=== PATIENT | female | born 1970 | race Caucasian/White ===

== ENCOUNTER → 2018-09-05 | Outpatient (CLI) | payer OTHER ==
[~2018-09-05] MED LIST: ACEBUTCAFT PO; AMOX500 PO; BUTASPCAF PO; Bactrim Ds Tab1 EACH PO; CEPH500 PO; CETI10 PO; CIPR500 PO; CLIN300 PO; CYCL10 PO; DIPH50 PO; DOXY100 PO; FLUT.05NI; HYDACE5 PO; HYDACE5325 PO; HYDR1TAB94 PO; IBUP600 PO; IBUP800 PO; LORA10ER PO; LORA1SY PO; LORPSEER12; Norco 5-325 Ta1 EACH PO; OLOP.1OPSO OU; PROM25 PO; Polytrim Eye Dr10 ML BOTHEYES; Prednisone20 MG PO; RXHYDACE PO; SULTRIDS PO; TRIA80TC TOP; Zofran Odt4 MG PO
== END | disposition home or self-care (01) ==
LOC: LAB 13:20 → LAB SHORT 13:20
DX: L03.90 Cellulitis, unspecified (principal)
CPT/HCPCS: 87070; 87077; 87147; 87186; 87205

== ENCOUNTER 2018-12-15 07:03 | Day surgery (SDC) | payer OTHER ==
[~2018-12-15] VITALS: Ht 160 cm; Wt 66.2 kg
[~2018-12-15 07:03] MED LIST changes: +ASCO500; +Loratadine10 MG; +Multiple Vitam1 EAC1
--- NOTE | 2018-12-15 07:56 | NUR ---
12/15/18 0756 Slava Eckert 1ST IV ATTEMPT IN RAC UNSUCESSFUL, [facility] 2ND IV ATTEMPT IN LFA SUCCESSFUL, [facility]
--- NOTE | 2018-12-15 10:46 | NUR ---
12/15/18 1046 Corinna La PT ALEJANDRA PO FLUIDS WELL AND WAS GIVEN A TABLET AND PEN TO WRITE INSTEAD OF SPEAKING. ENCOURAGED VOICE REST FOR 48 HRS AND PT STATED UNDERSTANDING. VSS AND STATED PAIN WAS 2/10 AND NO NAUSEA T/O RECOVERY. AMBU TO CAR W/SBA X1 ALEJANDRA WELL. COPIES OF ALL INSTRUCTIONS GIVEN AND PT HAS PAIN AND NAUSEA MEDS AT HOME
--- NOTE | 2018-12-15 10:52 | NUR ---
12/15/18 1052 Austen Lynch LATE ENTRY FOR 914 0.25MG EPI MIXED INTO 50ML INJECTIBLE NACL TO MAKE SOLUTION OF 1:200,000. 0.2ML OF SOLUTION INJECTED INTO OPSITE AT 914 BY GARFIELD.
== END 2018-12-15 10:35 | disposition home or self-care (01) ==
LOC: ORSCSDS 07:03
PROVIDERS: Otolaryngology
PROC: 0CBT8ZZ Excision of Right Vocal Cord, Via Natural or Artificial Opening Endoscopic (ICD-10-PCS; principal; 2018-12-15 08:15)
DX: J38.1 Polyp of vocal cord and larynx (principal); Z87.891 Personal history of nicotine dependence
CPT/HCPCS: J0330; J1100; J1885; J2250; J2405; J2704; J3010; J7120

== ENCOUNTER 2019-04-03 00:49 | Emergency (ER) | payer OTHER ==
[~2019-04-03] VITALS: Ht 157.5 cm; Wt 63.5 kg
[2019-04-03] MEDS ORDERED: ACYC200 PO (01:07)
[2019-04-03 01:48] LABS: Source, Urine Clean Catch
[2019-04-03 01:52] LABS: Bilirubin, Urine Neg (Neg); Blood, Urine Neg (Neg); Glucose Qualitative, Urine Neg (Neg); Ketones, Urine Neg (Neg); Leukocyte Esterase, Urine Neg (Neg); Nitrite, Urine Neg (Neg); Protein, Urine Neg (Neg); Specific Gravity, Urine 1.015 (1.003-1.022); Urobilinogen, Urine NORM (Normal)
[2019-04-03 01:58] LABS: Appearance, Urine Clear (Clear); Color, Urine Yellow (P-Yellow)
[2019-04-03 02:16] LABS: BASOPHILS ABSOLUTE AUTO 0.04 K/mm3 (0.00-0.23); BASOPHILS PERCENT AUTO 1 % (0-2); EOSINOPHILS PERCENT AUTO 5 % (0-6); Hematocrit 37.4 % (33.0-51.0); Hemoglobin 12.5 g/dL (11.5-16.0); IMMATURE GRAN ABSOLUTE AUTO 0.03 K/mm3 (0.00-0.10); IMMATURE GRAN PERCENT AUTO 1 % (0-1); LYMPHOCYTES ABSOLUTE AUTO 2.39 K/mm3 (0.84-5.20); LYMPHOCYTES PERCENT AUTO 37 % (21-46); MONOCYTES ABSOLUTE AUTO 0.51 K/mm3 (0.16-1.47); MONOCYTES PERCENT AUTO 8 % (4-13); Mean Corpuscular HGB 34.2 pg (26.0-34.0); Mean Corpuscular HGB Conc 33.4 g/dL (31.5-36.5); Mean Corpuscular Volume 102 fL (80-100); Mean Platelet Volume 8.6 fL (9.1-12.4); NEUTROPHILS ABSOLUTE AUTO 3.18 K/mm3 (1.96-9.15); NEUTROPHILS PERCENT AUTO 49 % (41-73); Platelet Count 289 K/mm3 (150-400); RDW Standard Deviation 45.4 fL (35.1-46.3); Red Blood Cell Count 3.66 M/mm3 (3.80-5.20); White Blood Cell Count 6.45 K/mm3 (4.00-11.30)
[2019-04-03 02:48] LABS: Alanine Aminotransfer (ALT/SGP 17 U/L (12-78); Albumin, Blood 3.5 g/dL (3.4-5.0); Alk Phos 63 U/L (50-136); Anion Gap 8 mmol/L (6-16); Aspartate Aminotrans (AST/SGOT 17 U/L (12-37); Bilirubin, Total 0.2 mg/dL (0.1-1.0); Blood Urea Nitrogen 13 mg/dL (8-24); Bun/Creatinine Ratio 19.1 (12.0-20.0); CO2, Blood 24 mmol/L (21-32); Calcium, Blood 7.7 mg/dL (8.5-10.1); Chloride, Blood 112 mmol/L (98-108); Creatinine, Blood 0.68 mg/dL (0.40-1.00); Globulin, Blood 3.5 g/dL (2.2-4.0); Glomerular Filtration Rate >60 (60-); Glucose, Blood 86 mg/dL (70-99); Potassium, Blood 3.5 mmol/L (3.5-5.5); Sodium, Blood 144 mmol/L (136-145)
[2019-04-05 07:07] LABS: CHLAMYDIA TRACHOMATIS, NAA Negative (Negative); NEISSERIA GONORRHOEAE, NAA Negative (Negative)
== END 2019-04-03 05:03 | disposition home or self-care (01) ==
LOC: ER 00:49
PROVIDERS: Emergency Medicine
DX: R10.30 Lower abdominal pain, unspecified (principal); Z98.51 Tubal ligation status; Z87.891 Personal history of nicotine dependence
CPT/HCPCS: 76830; 76856; 80053; 81003; 81025; 85025; 87491; 87591; 96374; 99284-25; A9270; A9270-GY; J1885

== ENCOUNTER 2020-06-28 18:52 | Emergency (ER) | payer OTHER ==
[~2020-06-28] VITALS: Ht 160 cm; Wt 68.0 kg
[~2020-06-28 18:52] MED LIST changes: +ACYC200 PO
[2020-06-28] MEDS ORDERED: CEPH500 PO (19:14)
[2020-06-28] MEDS ORDERED: Bactrim Ds Tab1 EACH PO (19:14)
[2020-06-28] MEDS ORDERED: PRED10 PO (19:25)
== END 2020-06-28 19:35 | disposition home or self-care (01) ==
LOC: ER 18:52
DX: L03.119 Cellulitis of unspecified part of limb (principal); F17.210 Nicotine dependence, cigarettes, uncomplicated; Z79.899 Other long term (current) drug therapy
CPT/HCPCS: 99282; A9270-GY

== ENCOUNTER 2021-06-12 18:38 | Emergency (ER) | payer OTHER ==
[~2021-06-12] VITALS: Ht 157.5 cm; Wt 68.0 kg
[~2021-06-12 18:38] MED LIST changes: +PRED10 PO
[2021-06-12 19:20] LABS: BASOPHILS ABSOLUTE AUTO 0.05 K/mm3 (0.00-0.23); BASOPHILS PERCENT AUTO 0 % (0-2); EOSINOPHILS ABSOLUTE AUTO 0.01 K/mm3 (0.00-0.68); EOSINOPHILS PERCENT AUTO 0 % (0-6); Hematocrit 38.2 % (33.0-51.0); Hemoglobin 13.8 g/dL (11.5-16.0); IMMATURE GRAN ABSOLUTE AUTO 0.08 K/mm3 (0.00-0.10); IMMATURE GRAN PERCENT AUTO 1 % (0-1); LYMPHOCYTES ABSOLUTE AUTO 1.11 K/mm3 (0.84-5.20); LYMPHOCYTES PERCENT AUTO 6 % (21-46); MONOCYTES ABSOLUTE AUTO 1.08 K/mm3 (0.16-1.47); MONOCYTES PERCENT AUTO 6 % (4-13); Mean Corpuscular HGB 35.3 pg (26.0-34.0); Mean Corpuscular HGB Conc 36.1 g/dL (31.5-36.5); Mean Corpuscular Volume 98 fL (80-100); Mean Platelet Volume 9.5 fL (9.1-12.4); NEUTROPHILS ABSOLUTE AUTO 15.06 K/mm3 (1.96-9.15); NEUTROPHILS PERCENT AUTO 87 % (41-73); Platelet Count 250 K/mm3 (150-400); RDW Coefficient Variation 12.1 % (11.7-14.2); Red Blood Cell Count 3.91 M/mm3 (3.80-5.20); White Blood Cell Count 17.39 K/mm3 (4.00-11.30)
[2021-06-12 19:46] LABS: Alanine Aminotransfer (ALT/SGP 19 U/L (12-78); Albumin, Blood 2.9 g/dL (3.4-5.0); Albumin/Globulin Ratio 0.6 (0.8-1.8); Alk Phos 101 U/L (50-136); Anion Gap 10 mmol/L (6-16); Aspartate Aminotrans (AST/SGOT 32 U/L (12-37); Bilirubin, Total 0.6 mg/dL (0.1-1.0); Blood Urea Nitrogen 8 mg/dL (8-24); Bun/Creatinine Ratio 11.5 (12.0-20.0); CO2, Blood 23 mmol/L (21-32); Calcium, Blood 8.4 mg/dL (8.5-10.1); Chloride, Blood 99 mmol/L (98-108); Glomerular Filtration Rate >60 (60-); Glucose, Blood 126 mg/dL (70-99); Potassium, Blood 3.4 mmol/L (3.5-5.5); Sodium, Blood 132 mmol/L (136-145); Total Protein, Blood 7.9 g/dL (6.4-8.2)
[2021-06-12 21:08] LABS: Source, Urine Clean Catch
[2021-06-12 21:10] LABS: Bilirubin, Urine Neg (Neg); Blood, Urine 2+ (Neg); Glucose Qualitative, Urine Neg (Neg); Ketones, Urine 1+ (Neg); Leukocyte Esterase, Urine 3+ (Neg); Nitrite, Urine Neg (Neg); Protein, Urine 2+ (Neg); Specific Gravity, Urine 1.015 (1.003-1.022); Urobilinogen, Urine 2+ (Normal)
[2021-06-12 21:15] LABS: Appearance, Urine Hazy (Clear); Color, Urine Yellow (P-Yellow)
[2021-06-12 21:18] LABS: Bacteria Mod /hpf; Red Blood Cells, Urine 0-2 /hpf (0-2); Squamous Epithelial Cells Few /hpf (Few)
[2021-06-12] MEDS ORDERED: ACYCLOVIR400 MG (22:10)
[2021-06-12] MEDS ORDERED: BUTALB-ACETAMI1 EAC5 (22:11)
[2021-06-12] MEDS ORDERED: ZOLOFT50 MG (22:11)
[2021-06-12] MEDS ORDERED: CEFP200 PO (22:35)
== END 2021-06-13 00:16 | disposition home or self-care (01) ==
LOC: ER 18:38
PROVIDERS: Physician Assistant
DX: N12 Tubulo-interstitial nephritis, not specified as acute or chronic (principal); F17.210 Nicotine dependence, cigarettes, uncomplicated
CPT/HCPCS: 36415; 76705; 80053; 81001; 83690; 85025; 87086; 96365; 96375; 99284-25; J0696; J2405; J3010; J7030

== ENCOUNTER 2021-07-19 15:18 | Emergency (ER) | payer OTHER ==
[~2021-07-19] VITALS: Ht 157.5 cm; Wt 68.0 kg
[~2021-07-19 15:18] MED LIST changes: +ACYCLOVIR400 MG; +BUTALB-ACETAMI1 EAC5; +CEFP200 PO; +ZOLOFT50 MG
[2021-07-19 15:52] LABS: BASOPHILS ABSOLUTE AUTO 0.03 K/mm3 (0.00-0.23); BASOPHILS PERCENT AUTO 1 % (0-2); EOSINOPHILS ABSOLUTE AUTO 0.18 K/mm3 (0.00-0.68); EOSINOPHILS PERCENT AUTO 3 % (0-6); Hematocrit 36.6 % (33.0-51.0); Hemoglobin 12.4 g/dL (11.5-16.0); IMMATURE GRAN ABSOLUTE AUTO 0.01 K/mm3 (0.00-0.10); IMMATURE GRAN PERCENT AUTO 0 % (0-1); LYMPHOCYTES ABSOLUTE AUTO 1.67 K/mm3 (0.84-5.20); LYMPHOCYTES PERCENT AUTO 28 % (21-46); MONOCYTES ABSOLUTE AUTO 0.44 K/mm3 (0.16-1.47); MONOCYTES PERCENT AUTO 8 % (4-13); Mean Corpuscular HGB 34.1 pg (26.0-34.0); Mean Corpuscular HGB Conc 33.9 g/dL (31.5-36.5); Mean Corpuscular Volume 101 fL (80-100); Mean Platelet Volume 8.5 fL (9.1-12.4); NEUTROPHILS ABSOLUTE AUTO 3.57 K/mm3 (1.96-9.15); NEUTROPHILS PERCENT AUTO 60 % (41-73); Platelet Count 328 K/mm3 (150-400); RDW Coefficient Variation 12.5 % (11.7-14.2); RDW Standard Deviation 46.6 fL (35.1-46.3); Red Blood Cell Count 3.64 M/mm3 (3.80-5.20)
[2021-07-19 15:54] LABS: Source, Urine Clean Catch
[2021-07-19 16:01] LABS: Appearance, Urine Cloudy (Clear); Bilirubin, Urine Neg (Neg); Blood, Urine 5+ (Neg); Color, Urine Yellow (P-Yellow); Glucose Qualitative, Urine Neg (Neg); Ketones, Urine Neg (Neg); Leukocyte Esterase, Urine 2+ (Neg); Nitrite, Urine Neg (Neg); Protein, Urine 1+ (Neg); Urobilinogen, Urine NORM (Normal)
[2021-07-19 16:13] LABS: Bacteria Many /hpf; Squamous Epithelial Cells Mod /hpf (Few)
[2021-07-19 16:33] LABS: Alanine Aminotransfer (ALT/SGP 24 U/L (12-78); Albumin, Blood 3.4 g/dL (3.4-5.0); Albumin/Globulin Ratio 0.8 (0.8-1.8); Alk Phos 70 U/L (50-136); Anion Gap 6 mmol/L (6-16); Aspartate Aminotrans (AST/SGOT 26 U/L (12-37); Bilirubin, Total 0.3 mg/dL (0.1-1.0); Blood Urea Nitrogen 9 mg/dL (8-24); Bun/Creatinine Ratio 16.5 (12.0-20.0); CO2, Blood 24 mmol/L (21-32); Calcium, Blood 8.6 mg/dL (8.5-10.1); Chloride, Blood 108 mmol/L (98-108); Creatinine, Blood 0.55 mg/dL (0.40-1.00); Glomerular Filtration Rate >60 (60-); Glucose, Blood 90 mg/dL (70-99); Potassium, Blood 3.6 mmol/L (3.5-5.5); Sodium, Blood 138 mmol/L (136-145); Total Protein, Blood 7.4 g/dL (6.4-8.2)
[2021-07-19] MEDS ORDERED: OMEP20ER PO (20:29)
[2021-07-19] MEDS ORDERED: ONDA4ODT MM (20:29)
== END 2021-07-19 20:46 | disposition home or self-care (01) ==
LOC: ER 15:18
PROVIDERS: Physician Assistant
DX: K52.9 Noninfective gastroenteritis and colitis, unspecified (principal); Z79.891 Long term (current) use of opiate analgesic; Z87.891 Personal history of nicotine dependence
CPT/HCPCS: 36415; 74177; 80053; 81001; 83690; 85025; 87077; 87086; 87147; 87186; 96374-59; 96375; 99284-25; A9270; J2270; J2405; J7120; Q9967

== ENCOUNTER → 2021-10-02 | Outpatient (CLI) | payer OTHER ==
[~2021-10-02] MED LIST changes: +OMEP20ER PO; +ONDA4ODT MM
[2021-10-02 21:05] LABS: Campylobacter Sp Not Detected (NOT DETECT)
[2021-10-02 21:06] LABS: Adenovirus F 40/41 Not Detected (NOT DETECT); Astrovirus Not Detected (NOT DETECT); Cryptosporidium Not Detected (NOT DETECT); Cyclospora Cayetanensis Not Detected (NOT DETECT); E. Coli O157 Not Detected (NOT DETECT); Entamoeba Histolytica Not Detected (NOT DETECT); Enteroaggregative E. coli-EAEC Not Detected (NOT DETECT); Enteropathogenic E. coli-EPEC Not Detected (NOT DETECT); Enterotoxigenic E. coli-ETEC Not Detected (NOT DETECT); Giardia Lamblia Not Detected (NOT DETECT); Norovirus GI/GII Not Detected (NOT DETECT); Plesiomonas Shigelloides Not Detected (NOT DETECT); Rotavirus A Not Detected (NOT DETECT); Salmonella Sp Not Detected (NOT DETECT); Sapovirus Not Detected (NOT DETECT); Shiga Toxin-prod E. coli-STEC Not Detected (NOT DETECT); Shigella/Enteroin E. coli-EIEC Not Detected (NOT DETECT); Vibrio Cholerae Not Detected (NOT DETECT); Vibrio Sp Not Detected (NOT DETECT); Yersinia Enterocolitica Not Detected (NOT DETECT)
== END ==
LOC: LAB SHORT 16:51
PROVIDERS: Family Medicine
DX: R19.7 Diarrhea, unspecified (principal)
CPT/HCPCS: 0097U

== ENCOUNTER 2021-10-21 15:17 | Emergency (ER) | payer OTHER ==
[~2021-10-21] VITALS: Ht 157.5 cm; Wt 68.0 kg
[2021-10-21 16:08] LABS: Source, Urine Clean Catch
[2021-10-21 16:12] LABS: Bilirubin, Urine Neg (Neg); Blood, Urine 1+ (Neg); Glucose Qualitative, Urine Neg (Neg); Ketones, Urine Neg (Neg); Leukocyte Esterase, Urine Neg (Neg); Nitrite, Urine Neg (Neg); Protein, Urine Neg (Neg); Specific Gravity, Urine 1.015 (1.003-1.022); Urobilinogen, Urine NORM (Normal)
[2021-10-21 16:20] LABS: Appearance, Urine Hazy (Clear); Color, Urine Pale Yellow (P-Yellow)
[2021-10-21 16:21] LABS: Amorphous Light (0-Heavy); Bacteria Mod /hpf; Mucus Light (0-Heavy); Squamous Epithelial Cells Rare /hpf (Few); White Blood Cells, Urine 0-2 /hpf (0-5)
[2021-10-21 16:24] LABS: BASOPHILS ABSOLUTE AUTO 0.04 K/mm3 (0.00-0.23); BASOPHILS PERCENT AUTO 1 % (0-2); EOSINOPHILS ABSOLUTE AUTO 0.15 K/mm3 (0.00-0.68); EOSINOPHILS PERCENT AUTO 2 % (0-6); Hematocrit 39.4 % (33.0-51.0); Hemoglobin 13.7 g/dL (11.5-16.0); IMMATURE GRAN ABSOLUTE AUTO 0.02 K/mm3 (0.00-0.10); IMMATURE GRAN PERCENT AUTO 0 % (0-1); LYMPHOCYTES ABSOLUTE AUTO 2.63 K/mm3 (0.84-5.20); LYMPHOCYTES PERCENT AUTO 33 % (21-46); MONOCYTES ABSOLUTE AUTO 0.46 K/mm3 (0.16-1.47); MONOCYTES PERCENT AUTO 6 % (4-13); Mean Corpuscular HGB 34.4 pg (26.0-34.0); Mean Corpuscular HGB Conc 34.8 g/dL (31.5-36.5); Mean Corpuscular Volume 99 fL (80-100); Mean Platelet Volume 8.5 fL (9.1-12.4); NEUTROPHILS PERCENT AUTO 58 % (41-73); Platelet Count 322 K/mm3 (150-400); RDW Standard Deviation 43.6 fL (35.1-46.3); Red Blood Cell Count 3.98 M/mm3 (3.80-5.20)
[2021-10-21 16:44] LABS: Alanine Aminotransfer (ALT/SGP 22 U/L (12-78); Albumin, Blood 3.3 g/dL (3.4-5.0); Albumin/Globulin Ratio 0.8 (0.8-1.8); Alk Phos 59 U/L (50-136); Anion Gap 7 mmol/L (6-16); Aspartate Aminotrans (AST/SGOT 24 U/L (12-37); Bilirubin, Total 0.5 mg/dL (0.1-1.0); Blood Urea Nitrogen 15 mg/dL (8-24); Bun/Creatinine Ratio 26.4 (12.0-20.0); CO2, Blood 25 mmol/L (21-32); Calcium, Blood 8.2 mg/dL (8.5-10.1); Chloride, Blood 107 mmol/L (98-108); Creatinine, Blood 0.57 mg/dL (0.40-1.00); Globulin, Blood 3.9 g/dL (2.2-4.0); Glomerular Filtration Rate >60 (60-); Glucose, Blood 82 mg/dL (70-99); Potassium, Blood 3.9 mmol/L (3.5-5.5); Sodium, Blood 139 mmol/L (136-145); Total Protein, Blood 7.2 g/dL (6.4-8.2)
[2021-10-21] MEDS ORDERED: OMEP20ER PO (18:34)
[2021-10-21] MEDS ORDERED: ONDA4ODT MM (18:34)
== END 2021-10-21 18:57 | disposition home or self-care (01) ==
LOC: ER 15:17
PROVIDERS: Physician Assistant
DX: R10.13 Epigastric pain (principal); R11.2 Nausea with vomiting, unspecified; Z87.891 Personal history of nicotine dependence
CPT/HCPCS: 36415; 74177; 80053; 81001; 83690; 85025; 87086; 96374; 99284-25; A9270; J2405; J7030; Q9967

== ENCOUNTER 2021-11-23 14:38 | Inpatient (IN) | payer OTHER ==
[~2021-11-23] VITALS: Ht 157.5 cm; Wt 72.6 kg
[~2021-11-23 14:38] MED LIST changes: -ACYCLOVIR400 MG; +ACYCLOVIR400 MG PO; -Loratadine10 MG
[2021-11-23 15:31] LABS: BASOPHILS ABSOLUTE AUTO 0.07 K/mm3 (0.00-0.23); BASOPHILS PERCENT AUTO 0 % (0-2); EOSINOPHILS ABSOLUTE AUTO 0.01 K/mm3 (0.00-0.68); EOSINOPHILS PERCENT AUTO 0 % (0-6); Hematocrit 40.3 % (33.0-51.0); Hemoglobin 13.8 g/dL (11.5-16.0); IMMATURE GRAN ABSOLUTE AUTO 0.36 K/mm3 (0.00-0.10); IMMATURE GRAN PERCENT AUTO 2 % (0-1); LYMPHOCYTES ABSOLUTE AUTO 0.81 K/mm3 (0.84-5.20); LYMPHOCYTES PERCENT AUTO 4 % (21-46); MONOCYTES ABSOLUTE AUTO 1.67 K/mm3 (0.16-1.47); MONOCYTES PERCENT AUTO 7 % (4-13); Mean Corpuscular HGB 34.2 pg (26.0-34.0); Mean Corpuscular HGB Conc 34.2 g/dL (31.5-36.5); Mean Corpuscular Volume 100 fL (80-100); NEUTROPHILS ABSOLUTE AUTO 19.54 K/mm3 (1.96-9.15); NEUTROPHILS PERCENT AUTO 87 % (41-73); Platelet Count 267 K/mm3 (150-400); RDW Coefficient Variation 12.5 % (11.7-14.2); RDW Standard Deviation 46.1 fL (35.1-46.3); Red Blood Cell Count 4.04 M/mm3 (3.80-5.20); White Blood Cell Count 22.46 K/mm3 (4.00-11.30)
[2021-11-23 15:53] LABS: Alanine Aminotransfer (ALT/SGP 8 U/L (12-78); Albumin, Blood 2.8 g/dL (3.4-5.0); Albumin/Globulin Ratio 0.5 (0.8-1.8); Alk Phos 104 U/L (50-136); Anion Gap 10 mmol/L (6-16); Aspartate Aminotrans (AST/SGOT 9 U/L (12-37); Bilirubin, Total 0.7 mg/dL (0.1-1.0); Blood Urea Nitrogen 8 mg/dL (8-24); Bun/Creatinine Ratio 11.4 (12.0-20.0); CO2, Blood 23 mmol/L (21-32); Calcium, Blood 9.2 mg/dL (8.5-10.1); Chloride, Blood 98 mmol/L (98-108); Globulin, Blood 5.4 g/dL (2.2-4.0); Glomerular Filtration Rate >60 (60-); Glucose, Blood 140 mg/dL (70-99); Sodium, Blood 131 mmol/L (136-145); Total Protein, Blood 8.2 g/dL (6.4-8.2)
[2021-11-24 05:27] LABS: Hematocrit 32.1 % (33.0-51.0); Hemoglobin 10.9 g/dL (11.5-16.0); Mean Corpuscular HGB 34.4 pg (26.0-34.0); Mean Corpuscular Volume 101 fL (80-100); Mean Platelet Volume 9.2 fL (9.1-12.4); Platelet Count 241 K/mm3 (150-400); RDW Coefficient Variation 12.8 % (11.7-14.2); RDW Standard Deviation 48.4 fL (35.1-46.3); Red Blood Cell Count 3.17 M/mm3 (3.80-5.20); White Blood Cell Count 15.97 K/mm3 (4.00-11.30)
[2021-11-24 05:51] LABS: Anion Gap 7 mmol/L (6-16); Blood Urea Nitrogen 5 mg/dL (8-24); Bun/Creatinine Ratio 8.8 (12.0-20.0); CO2, Blood 22 mmol/L (21-32); Calcium, Blood 7.5 mg/dL (8.5-10.1); Chloride, Blood 106 mmol/L (98-108); Creatinine, Blood 0.57 mg/dL (0.40-1.00); Glomerular Filtration Rate >60 (60-); Glucose, Blood 99 mg/dL (70-99); Potassium, Blood 3.1 mmol/L (3.5-5.5); Sodium, Blood 135 mmol/L (136-145)
--- NOTE | 2021-11-24 06:08 | NUR ---
PM SHIFT SUMMARY PATIENT CAME TO ER WITH COMPLAINTS OF RIGHT AXILLARY / SHOULDER PAIN, THAT EXTENDED TOWARD CHEST. SHE WAS GIVEN DOXYCYCLINE AND ANTIFUNGAL BY HER PCP, BUT THIS WAS NOT HELPING, PAIN CONTINUED TO WORSEN. CT CHEST SHOWS A STRUCTURE IN THE RIGHT AXILLA, WHICH COULD BE HEMATOMA, EARLY ABSCESS OR LYMPHADENOPATHY. BLOOD CULTURES WERE DRAWN AND AWAITING RESULTS. HER WBC DROPPED SIGNIFICANTLY FROM A 22.46 TO A 15.97. SHE WAS GIVEN 1 DOSE OF MORPHINE DURING SHIFT. SHE HAD NO OTHER COMPLAINTS.
[2021-11-24 17:24] LABS: Vancomycin, Trough 12.5 ug/mL (5.0-10.0)
--- NOTE | 2021-11-24 18:10 | NUR ---
SHIFT SUMMARY THE PATIENT IS ALERT AND ORIENTED X4, PLEASANT AND COOPERATIVE WITH CARE. THE PATIENT IS INDEPENDENT TO THE BATHROOM. CURRENTLY HAS VANCOMYCIN INFUSING. PAIN MEDS GIVEN X2 THIS SHIFT. THE PATIENT HAS BEEN HAVING LOOSE STOOLS THIS SHIFT. STOOL SAMPLE SENT OUT TO RULE OUT CDIFF. RECENT TEMP 100.3. THE PATIENT HAS HAD A POOR APPETITE TODAY. CALL LIGHT WITHIN REACH. BED IN THE LOWEST POSITION. THIS NURSE WILL CONTINUE TO CARE FOR THE PATIENT UNTIL SHIFT REPORT IS GIVEN TO ONCOMING NURSE.
[2021-11-24 23:23] LABS: C DIFFICILE DNA NEGATIVE (Negative)
[2021-11-25 04:43] LABS: BASOPHILS ABSOLUTE AUTO 0.06 K/mm3 (0.00-0.23); BASOPHILS PERCENT AUTO 0 % (0-2); EOSINOPHILS ABSOLUTE AUTO 0.25 K/mm3 (0.00-0.68); EOSINOPHILS PERCENT AUTO 2 % (0-6); Hematocrit 29.7 % (33.0-51.0); Hemoglobin 10.1 g/dL (11.5-16.0); IMMATURE GRAN ABSOLUTE AUTO 0.07 K/mm3 (0.00-0.10); IMMATURE GRAN PERCENT AUTO 1 % (0-1); LYMPHOCYTES ABSOLUTE AUTO 1.65 K/mm3 (0.84-5.20); LYMPHOCYTES PERCENT AUTO 11 % (21-46); MONOCYTES ABSOLUTE AUTO 1.47 K/mm3 (0.16-1.47); MONOCYTES PERCENT AUTO 10 % (4-13); Mean Corpuscular HGB 34.5 pg (26.0-34.0); Mean Corpuscular Volume 101 fL (80-100); NEUTROPHILS ABSOLUTE AUTO 11.03 K/mm3 (1.96-9.15); NEUTROPHILS PERCENT AUTO 76 % (41-73); Platelet Count 266 K/mm3 (150-400); RDW Standard Deviation 47.8 fL (35.1-46.3); Red Blood Cell Count 2.93 M/mm3 (3.80-5.20); White Blood Cell Count 14.53 K/mm3 (4.00-11.30)
[2021-11-25 05:08] LABS: Anion Gap 6 mmol/L (6-16); Blood Urea Nitrogen 2 mg/dL (8-24); Bun/Creatinine Ratio 3.7 (12.0-20.0); CO2, Blood 24 mmol/L (21-32); Calcium, Blood 7.7 mg/dL (8.5-10.1); Chloride, Blood 106 mmol/L (98-108); Creatinine, Blood 0.54 mg/dL (0.40-1.00); Glomerular Filtration Rate >60 (60-); Glucose, Blood 106 mg/dL (70-99); Sodium, Blood 136 mmol/L (136-145)
--- NOTE | 2021-11-25 05:54 | NUR ---
PM SHIFT SUMMARY PATIENT ONLY REQUESTED PAIN MEDICATION ONCE DURING SHIFT. NORMAL SALINE BAG 3 OF 3 FINISHED THIS MORNING, TOWARD END OF SHIFT. HER WBC ARE DOWN TO 14.53, BUT HER POTASSIUM IS STILL AT 3.0, DESPITE REPLACEMENT IN AM. C.DIFF RESULTS CAME BACK NEGATIVE. SHE HAS HAD A DECREASED APPETITIE AND ALSO DOES NOT SEEM TO BE DRINKING MUCH FLUIDS. OTHER THAN 1 PAIN MED REQUEST, SHE HAD NO OTHER COMPLAINTS DURING THE SHIFT.
--- NOTE | 2021-11-25 09:00 | NUR ---
PT ALERT AND ORIENTED X4. PLEASANT AND COOPERATIVE. PER METAL ENGINEERING PROCESS WORKER NRS-80'S. NO MURMURS. LUNGS CLEAR BILATERALLY, 98% ON ROOM AIR, UNLABORED RESPIRATIONS. USES BATHROOM INDEPENDENTLY. LAST BOWEL MOVEMENT WAS YESTERDAY PER PATIENT. BOWEL SOUNDS ACTIVE IN ALL FOUR QUADRANTS. C/O CONTINUED RIGHT SHOULDER PAIN. UNLABLE TO LIFT RIGHT ARM. NOTICED A NEW RASH ON RIGHT ARM THAT APPEARED THIS MORNING. BED IN LOW POSITION, CALL LIGHT IN REACH AND CALLS APPROPRIATLY.
--- NOTE | 2021-11-25 18:48 | NUR ---
PT COOPERATIVE AND PLEASANT TODAY. IV MORPHINE CHANGED TO PO ORDERS. PT STATED IT WAS NOT TREATING PAIN ADEQUALTY. PO ROXICODONE AND TORADOL ADDED TO ORDERS PER EMAR. ROXICODONE CONTROLS PAIN ADEQUATLY FOR PATIENT. PT HAD A VISIT FROM FAMILY TODAY. RASH ON RIGHT SHOULDER AND CHEST APPEARS TO WORSEN AFTER SHOWER ACCORDING TO PATIENT. SHE BELIVES IT MAY BE CONTRIBUTED TO THE WARM WATER. HEATER IN ROOM TURNED DOWN PER PATIENT REQUEST TO SEE IF THIS HELPS. CALL LIGHT IN REACH, BED IN LOW POSITION, PATIENT CALLS APPROPRIATELY.
--- NOTE | 2021-11-25 18:57 | NUR ---
PT PLEASANT TODAY. DR DID CHANGE IV PAIN MEDS TO PO MEDS. PT STATES APPEARS TO BE WORKING WELL. DOES HAVE IV TORADOL AVAIL. WILL PASS INFO TO NOLAN NURSE. BED IN LOW POSITION,Kyler ANAYA IN REACH, CALLS APPROP
--- NOTE | 2021-11-26 05:19 | NUR ---
PM SHIFT SUMMARY PATIENT STATES THAT HER PAIN LEVELS ARE MUCH BETTER CONTROLLED WITH THE ROTATING MAURA AND TORADOL COMBINATION THAN WITH MORPHINE ALONE. SHE IS NOW ABLE TO USE HER RIGHT ARM TO PUSH HERSELF UP IN BED WITH MINIMAL DISCOMFORT. SHE DID NOT HAVE ANY COMPLAINTS OF HAVING A SKIN BREAKOUT/RASH TONIGHT. LAB RESULTS ARE PENDING AT THIS TIME. POSSIBLE DC TODAY.
--- NOTE | 2021-11-26 08:15 | NUR ---
PT PLEASANT AND COOPERATIVE THIS AM. ALERT AND ORIENTED X4. H/R IN 80'S. LUNG SOUNDS CLEAR, BREATHING IS UNLABORED. LAST BOWEL MOVEMENT WAS YESTERDAY. BOWEL SOUNDS IN ALL FOUR QUADRANTS. USES BATHROOM INDEPENDENTLY. NO INTEGUMENTARY CONCERNS. PT STATED SHE HAS CONCERNS ABOUT GOING HOME AND NOT DRINKING OR SMOKING. SHE ASKED IF THERE WERE ANY OPTIONS AVAILABE TO HELP HER QUIT. WE TALKED ABOUT POSSIBLE MEDICATIONS AND NON-PHARMACOLOGICAL INTERVENTIONS. SHE STATED HER ROXICODONE HELPED TO BRING HER PAIN DOWN TO A MANAGEABLE LEVEL. BED IN LOW POSITION, CALL LIGHT WITHIN REACH, CALLS APPROPRIATLEY.
[2021-11-26 09:20] LABS: BASOPHILS ABSOLUTE AUTO 0.05 K/mm3 (0.00-0.23); BASOPHILS PERCENT AUTO 0 % (0-2); EOSINOPHILS PERCENT AUTO 3 % (0-6); Hematocrit 31.5 % (33.0-51.0); Hemoglobin 10.5 g/dL (11.5-16.0); IMMATURE GRAN ABSOLUTE AUTO 0.08 K/mm3 (0.00-0.10); IMMATURE GRAN PERCENT AUTO 1 % (0-1); LYMPHOCYTES ABSOLUTE AUTO 1.16 K/mm3 (0.84-5.20); LYMPHOCYTES PERCENT AUTO 10 % (21-46); MONOCYTES ABSOLUTE AUTO 0.72 K/mm3 (0.16-1.47); MONOCYTES PERCENT AUTO 6 % (4-13); Mean Corpuscular HGB 33.9 pg (26.0-34.0); Mean Corpuscular HGB Conc 33.3 g/dL (31.5-36.5); Mean Corpuscular Volume 102 fL (80-100); Mean Platelet Volume 9.1 fL (9.1-12.4); NEUTROPHILS ABSOLUTE AUTO 9.54 K/mm3 (1.96-9.15); NEUTROPHILS PERCENT AUTO 81 % (41-73); Platelet Count 325 K/mm3 (150-400); RDW Standard Deviation 48.5 fL (35.1-46.3); White Blood Cell Count 11.85 K/mm3 (4.00-11.30)
[2021-11-26 09:37] LABS: Vancomycin, Trough 16.9 ug/mL (5.0-10.0)
--- NOTE | 2021-11-26 10:01 | NUR ---
DR ESTES IN ROOM. STATES PT LIKELY BE RELEASED TODAY. EXPECTS TO CONTINUE PO MEDS.
[2021-11-26] MEDS ORDERED: B-1100 M1 PO (13:05)
[2021-11-26] MEDS ORDERED: IBUP400 PO (13:06)
[2021-11-26] MEDS ORDERED: VISBIOME 112.51 EACH PO (13:06)
[2021-11-26] MEDS ORDERED: Percocet 5-3251 EACH PO (13:07)
[2021-11-26] MEDS ORDERED: SULTRIDS PO (13:07)
[2021-11-26] MEDS ORDERED: ONE DAILY ESS400 MCG PO (13:08)
--- NOTE | 2021-11-26 14:48 | NUR ---
DISCHARGE REVIEWED WITH PT. PT VERBALIZED UNDERSTANDING TO CALL DR NORTH FOR APPTS. PT VERBALIZED UNDERSTANDING OF MEDS AND INSTRUCTIONS. IV PULLED INTACT. NO TELE. HANDED PT PHYSICAL RX. PT WHEELED TO DOOR BY STUDENT RN AT 2734
== END 2021-11-26 15:00 | disposition home or self-care (01) | DRG 872 ==
LOC: ER 14:38 → MEDS 19:35 → ER 20:48 → MEDS 20:59
PROVIDERS: Emergency Medicine; Internal Medicine; Pharmacist; Physician Assistant; ADMIT Internal Medicine
DX: A41.9 Sepsis, unspecified organism (principal); L03.111 Cellulitis of right axilla; E87.1 Hypo-osmolality and hyponatremia; Z28.21 Immunization not carried out because of patient refusal; E87.6 Hypokalemia; F10.20 Alcohol dependence, uncomplicated; Z71.41 Alcohol abuse counseling and surveillance of alcoholic; Z86.14 Personal history of Methicillin resistant Staphylococcus aureus infection; Z98.51 Tubal ligation status; Z98.890 Other specified postprocedural states; Z88.8 Allergy status to other drugs, medicaments and biological substances; Z87.891 Personal history of nicotine dependence; Z79.2 Long term (current) use of antibiotics; Z79.899 Other long term (current) drug therapy
CPT/HCPCS: 36415; 71260; 80048; 80053; 80202; 83605; 84484; 85025; 85027; 87040; 87493; 93005; 93010; 96365; 96375; 99285-25; A9270; J1170; J1650; J1885; J2270; J2405; J3370; J7030; J7050; Q9967

== ENCOUNTER 2022-08-19 00:45 | Emergency (ER) | payer OTHER ==
[~2022-08-19] VITALS: Ht 157.5 cm; Wt 70.3 kg
[~2022-08-19 00:45] MED LIST changes: +B-1100 M1 PO; +IBUP400 PO; +ONE DAILY ESS400 MCG PO; +Percocet 5-3251 EACH PO; +VISBIOME 112.51 EACH PO
[2022-08-19 01:13] LABS: BASOPHILS ABSOLUTE AUTO 0.04 K/mm3 (0.00-0.23); BASOPHILS PERCENT AUTO 1 % (0-2); EOSINOPHILS ABSOLUTE AUTO 0.39 K/mm3 (0.00-0.68); EOSINOPHILS PERCENT AUTO 7 % (0-6); Hematocrit 37.5 % (33.0-51.0); Hemoglobin 12.9 g/dL (11.5-16.0); IMMATURE GRAN ABSOLUTE AUTO 0.01 K/mm3 (0.00-0.10); IMMATURE GRAN PERCENT AUTO 0 % (0-1); LYMPHOCYTES PERCENT AUTO 43 % (21-46); MONOCYTES ABSOLUTE AUTO 0.48 K/mm3 (0.16-1.47); MONOCYTES PERCENT AUTO 9 % (4-13); Mean Corpuscular HGB 33.2 pg (26.0-34.0); Mean Corpuscular HGB Conc 34.4 g/dL (31.5-36.5); Mean Corpuscular Volume 97 fL (80-100); NEUTROPHILS ABSOLUTE AUTO 2.33 K/mm3 (1.96-9.15); NEUTROPHILS PERCENT AUTO 41 % (41-73); Platelet Count 409 K/mm3 (150-400); RDW Coefficient Variation 12.4 % (11.7-14.2); RDW Standard Deviation 44.1 fL (35.1-46.3); Red Blood Cell Count 3.88 M/mm3 (3.80-5.20); White Blood Cell Count 5.65 K/mm3 (4.00-11.30)
[2022-08-19 01:34] LABS: Ethanol (Alcohol), Blood, Med 234 mg/dL; Free Thyroxine 0.92 ng/dL (0.70-1.60)
[2022-08-19 01:50] LABS: Acetaminophen, Random <2.0 ug/mL (10.0-30.0); Alanine Aminotransfer (ALT/SGP 40 U/L (12-78); Albumin, Blood 3.4 g/dL (3.4-5.0); Albumin/Globulin Ratio 0.9 (0.8-1.8); Alk Phos 56 U/L (50-136); Anion Gap 6 mmol/L (6-16); Aspartate Aminotrans (AST/SGOT 29 U/L (12-37); Bilirubin, Total 0.1 mg/dL (0.1-1.0); Blood Urea Nitrogen 7 mg/dL (8-24); Bun/Creatinine Ratio 9.9 (12.0-20.0); CO2, Blood 27 mmol/L (21-32); Calcium, Blood 8.5 mg/dL (8.5-10.1); Chloride, Blood 109 mmol/L (98-108); Creatinine, Blood 0.71 mg/dL (0.40-1.00); Globulin, Blood 3.9 g/dL (2.2-4.0); Glomerular Filtration Rate 104 (60-); Glucose, Blood 94 mg/dL (70-99); Potassium, Blood 3.7 mmol/L (3.5-5.5); Sodium, Blood 142 mmol/L (136-145); Total Protein, Blood 7.3 g/dL (6.4-8.2)
[2022-08-19 01:56] LABS: Influenza A, PCR NEGATIVE (NEGATIVE); Influenza B, PCR NEGATIVE (NEGATIVE); Resp Syncytial Virus, PCR NEGATIVE (NEGATIVE); SARS-Cov-2 (COVID-19) PCR, MMC NEGATIVE (NEGATIVE)
[2022-08-19 03:13] LABS: U Amphetamine Screen Not Detected; U Barbituate Screen Not Detected; U Benzodiazapine Screen DETECTED; U Buprenorphine Screen Not Detected; U Cannabinoids Screen DETECTED; U Cocaine Screen Not Detected; U Methadone Screen Not Detected; U Methamphetamine Screen Not Detected; U Opiates Screen Not Detected; U Oxycodone Screen DETECTED; U Phencyclidine Screen Not Detected; U Propoxyphene Screen Not Detected
[2022-08-19] MEDS ORDERED: Lisinopril-Hct1 EAC4 PO (05:48)
[2022-08-19] MEDS ORDERED: Norethindrone Ac5 MG PO (05:49)
[2022-08-19] MEDS ORDERED: Amitriptyline H10 MG PO (05:49)
[2022-08-19] MEDS ORDERED: Naltrexone HCl50 MG (05:49)
[2022-08-19] MEDS ORDERED: TRAM50 PO (05:49)
[2022-08-19] MEDS ORDERED: BUTALB-ACETAMI1 EAC5 PO (05:51)
[2022-08-19] MEDS ORDERED: Prozac20 MG PO (06:06)
== END 2022-08-19 07:08 | disposition home or self-care (01) ==
LOC: ER 00:45
PROVIDERS: Student in an Organized Health Care Education/Training Program
DX: F32.A Depression, unspecified (principal); R45.851 Suicidal ideations; T42.4X2A Poisoning by benzodiazepines, intentional self-harm, initial encounter; T46.4X2A Poisoning by angiotensin-converting-enzyme inhibitors, intentional self-harm, initial encounter; F17.210 Nicotine dependence, cigarettes, uncomplicated; Z20.822 Contact with and (suspected) exposure to COVID-19; Z79.899 Other long term (current) drug therapy
CPT/HCPCS: 0241U; 80053; 84439; 84443; 85025; 93005; 93010; A9270; G0480; J7030

== ENCOUNTER 2022-09-19 06:53 | Day surgery (SDC) | payer OTHER ==
[~2022-09-19] VITALS: Ht 157.5 cm; Wt 73.2 kg
[~2022-09-19 06:53] MED LIST changes: +ALBU90OI INH; +Amitriptyline H10 MG PO; +BUTALB-ACETAMI1 EAC5 PO; +Lisinopril-Hct1 EAC4 PO; +NICO2 PO; +Naltrexone HCl50 MG; +Naltrexone HCl50 MG PO; +Norethindrone Ac5 MG PO; +Prozac20 MG PO; +TRAM50 PO
--- NOTE | 2022-09-19 14:11 | NUR ---
PT SURGERY DELAYED UNTIL AFTER 1500. IV PULLED BEFORE LEAVING HOSPITAL.
--- NOTE | 2022-09-19 14:55 | NUR ---
09/19/22 145[place] 10ML 1% LIDOCAINE WITH EPI [id number] INJECTED BY DR. ORTIZ PRIOR TO PREP
--- NOTE | 2022-09-19 17:19 | NUR ---
Patient up to Ambulate independently. Gait steady. Dressing to procedure site clean, dry, intact with no visible drainage, swelling, erythema or bruising noted. Discharge instructions reviewed with patient. Patient verbalizes understanding. Copy given to patient to take home.Lungs clear T/O to Auscultation. Pt able to take ice with no problem, fluids with no problem. Discharged via wheelchair to private car for ride home.
== END 2022-09-19 22:56 | disposition home or self-care (01) ==
LOC: ORSCMMR 06:53 → ORD 08:15 → ORSCMMR 08:15
PROVIDERS: Surgery
PROC: 0GTH0ZZ Resection of Right Thyroid Gland Lobe, Open Approach (ICD-10-PCS; principal; 2022-09-19 15:00)
DX: C73 Malignant neoplasm of thyroid gland (principal); Z87.891 Personal history of nicotine dependence; Z79.899 Other long term (current) drug therapy
CPT/HCPCS: A9270; J1100; J2250; J2370; J2405; J2704; J3010; J7120

== ENCOUNTER → 2023-08-30 | Outpatient (CLI) | payer OTHER | LOC: LAB 15:43 → LAB SHORT 15:43 | DX: N39.0 Urinary tract infection, site not specified (principal) | CPT/HCPCS: 87077; 87086; 87186 ==

== ENCOUNTER 2024-04-20 05:11 | Inpatient (IN) | payer OTHER ==
[~2024-04-20] VITALS: Ht 157.5 cm; Wt 69.5 kg
[2024-04-20] MEDS ORDERED: MethylPREDNISolone Sod Succ 125 MG Vial IV ONE (05:20)
[2024-04-20 05:30] LABS: Base Excess Venous -9.3 mmol/L; Bicarbonate Venous 17.7 mmol/L (24.0-30.0); PCO2 Venous 36.1 mmHg (38-42); pH Blood Venous 7.29 (7.34-7.37)
[2024-04-20] MEDS ORDERED: Ipratropium/Albuterol SulF 2.5-0.5MG/3 ML Amp INH ONE (05:30)
[2024-04-20 05:36] LABS: BASOPHILS ABSOLUTE AUTO 0.05 K/mm3 (0.00-0.23); BASOPHILS PERCENT AUTO 1 % (0-2); EOSINOPHILS ABSOLUTE AUTO 0.07 K/mm3 (0.00-0.68); EOSINOPHILS PERCENT AUTO 1 % (0-6); Hematocrit 41.5 % (33.0-51.0); Hemoglobin 13.7 g/dL (11.5-16.0); IMMATURE GRAN ABSOLUTE AUTO 0.03 K/mm3 (0.00-0.10); IMMATURE GRAN PERCENT AUTO 0 % (0-1); LYMPHOCYTES ABSOLUTE AUTO 2.82 K/mm3 (0.84-5.20); LYMPHOCYTES PERCENT AUTO 34 % (21-46); MONOCYTES ABSOLUTE AUTO 0.59 K/mm3 (0.16-1.47); MONOCYTES PERCENT AUTO 7 % (4-13); Mean Corpuscular HGB 33.4 pg (26.0-34.0); Mean Corpuscular Volume 101 fL (80-100); Mean Platelet Volume 8.4 fL (9.1-12.4); NEUTROPHILS ABSOLUTE AUTO 4.73 K/mm3 (1.96-9.15); NEUTROPHILS PERCENT AUTO 57 % (41-73); Platelet Count 327 K/mm3 (150-400); RDW Coefficient Variation 13.3 % (11.7-14.2); RDW Standard Deviation 49.7 fL (35.1-46.3); White Blood Cell Count 8.29 K/mm3 (4.00-11.30)
[2024-04-20 05:54] LABS: Albumin, Blood 3.3 g/dL (3.4-5.0); Albumin/Globulin Ratio 0.8 (0.8-1.8); Bilirubin, Total 0.3 mg/dL (0.1-1.0); Bun/Creatinine Ratio 13.1 (12.0-20.0); Calcium, Blood 7.6 mg/dL (8.5-10.1); Creatinine, Blood 0.61 mg/dL (0.40-1.00); Globulin, Blood 4.1 g/dL (2.2-4.0); Potassium, Blood 3.6 mmol/L (3.5-5.5); Total Protein, Blood 7.4 g/dL (6.4-8.2)
[2024-04-20 06:14] LABS: Influenza A, PCR NEGATIVE (NEGATIVE); Influenza B, PCR NEGATIVE (NEGATIVE); Resp Syncytial Virus, PCR NEGATIVE (NEGATIVE); SARS-Cov-2 (COVID-19) PCR, MMC NEGATIVE (NEGATIVE)
[2024-04-20] MEDS ORDERED: EPINEPHrine HCL 11.25 MG/0.5 ML VIAL INH ONE (06:40)
[2024-04-20 08:08] LABS: U Amphetamine Screen DETECTED; U Barbituate Screen Not Detected; U Benzodiazapine Screen Not Detected; U Buprenorphine Screen Not Detected; U Cannabinoids Screen Not Detected; U Cocaine Screen Not Detected; U Methadone Screen Not Detected; U Methamphetamine Screen DETECTED; U Opiates Screen Not Detected; U Oxycodone Screen DETECTED; U Phencyclidine Screen Not Detected
[2024-04-20] MEDS ORDERED: Albuterol 2.5 MG/3 ML VIAL INH PRN (10:15)
[2024-04-20] MEDS ORDERED: TraMADol HCl 50 MG Tab PO PRN (10:15)
[2024-04-20] MEDS ORDERED: Prochlorperazine Edisylate 10 mg Vial IV PRN (10:15)
[2024-04-20] MEDS ORDERED: NS 1,000 ML IV SCH (10:15)
[2024-04-20] MEDS ORDERED: EPINEPHrine HCL 11.25 MG/0.5 ML VIAL INH PRN (10:15)
[2024-04-20] MEDS ORDERED: Temazepam 15 MG Cap PO PRN (10:15)
[2024-04-20] MEDS ORDERED: CefTRIAXone Sodium 2,000 MG in NS 100 ML IV SCH (10:30)
[2024-04-20] MEDS ORDERED: NS 100 ML IV ONE (11:45)
[2024-04-20] MEDS ORDERED: CefTRIAXone 2000 MG Vial ONE (11:45)
[2024-04-20 13:00] VITALS: BP 159/90
[2024-04-20 13:26] LABS: Base Excess Venous -6.3 mmol/L; Bicarbonate Venous 20.8 mmol/L (24.0-30.0); PCO2 Venous 24.1 mmHg (38-42); pH Blood Venous 7.47 (7.34-7.37)
[2024-04-20 15:34] VITALS: BP 153/80
[2024-04-20] MEDS ORDERED: MethylPREDNISolone Sod Succ 125 MG Vial IV SCH (16:00)
--- NOTE | 2024-04-20 18:14 | NUR ---
SHIFT SUMMARY; ASSUMED CARE FROM ED FOR ADMIT. MOVES SELF TO BED INDEPENDANLTY. VSS, RA ON ARRIVAL WITH SATS 96%. A/A/OX4, NS STARTED AT 100ML/HR. INDEPENDANT IN ROOM. WILL CONTINUE TO MONITOR AND TREAT UNTIL CHANGE OF SHIFT.
[2024-04-20] MEDS ORDERED: Lactobacil 2-S.Thermo-Bifido 1 1 Cap PO SCH (21:00)
[2024-04-20] MEDS ORDERED: Sennosides 8.6 MG Tab PO SCH (21:00)
[2024-04-20 21:27] VITALS: BP 151/100
[2024-04-21 00:08] VITALS: BP 130/92
[2024-04-21 04:11] LABS: BASOPHILS ABSOLUTE AUTO 0.01 K/mm3 (0.00-0.23); BASOPHILS PERCENT AUTO 0 % (0-2); EOSINOPHILS PERCENT AUTO 0 % (0-6); Hematocrit 39.7 % (33.0-51.0); Hemoglobin 13.1 g/dL (11.5-16.0); IMMATURE GRAN ABSOLUTE AUTO 0.05 K/mm3 (0.00-0.10); IMMATURE GRAN PERCENT AUTO 0 % (0-1); LYMPHOCYTES ABSOLUTE AUTO 0.67 K/mm3 (0.84-5.20); LYMPHOCYTES PERCENT AUTO 5 % (21-46); MONOCYTES ABSOLUTE AUTO 0.14 K/mm3 (0.16-1.47); MONOCYTES PERCENT AUTO 1 % (4-13); Mean Corpuscular Volume 100 fL (80-100); Mean Platelet Volume 8.6 fL (9.1-12.4); NEUTROPHILS ABSOLUTE AUTO 12.04 K/mm3 (1.96-9.15); NEUTROPHILS PERCENT AUTO 93 % (41-73); Platelet Count 371 K/mm3 (150-400); RDW Coefficient Variation 13.4 % (11.7-14.2); Red Blood Cell Count 3.97 M/mm3 (3.80-5.20); White Blood Cell Count 12.91 K/mm3 (4.00-11.30)
[2024-04-21 04:19] VITALS: BP 123/78
[2024-04-21 04:37] LABS: Bun/Creatinine Ratio 13.9 (12.0-20.0); Calcium, Blood 8.5 mg/dL (8.5-10.1); Creatinine, Blood 0.58 mg/dL (0.40-1.00); Potassium, Blood 4.1 mmol/L (3.5-5.5)
--- NOTE | 2024-04-21 06:48 | NUR ---
PT STABLE THROUGHOUT SHIFT. PT REMAINED ON ROOM AIR WITH GOOD SPO2. PT HR DID IMPROVE TO 86 THIS MORNING. PT DID C/O OF HEADACHE AND WAS MEDICATED FOR PAIN WITH GOOD RESULT. PT STATES SHE DOES TAKE CLARITIN DAILY AND FEELS THE HEADACHE IS THE RESULT OF SINUS PRESSURE. PT DID TAKE A SHOWER EARLY IN THE SHIFT AND TOLERATED THAT WELL W/O INCIDENT.
[2024-04-21 07:56] VITALS: BP 146/87
[2024-04-21] MEDS ORDERED: Acyclovir 400 MG Tab PO SCH (09:00)
[2024-04-21] MEDS ORDERED: Azithromycin 250 MG Tab PO SCH (09:00)
--- NOTE | 2024-04-21 09:23 | NUR ---
PROGRESS NOTE DR. SEAMAN ROUNDED ON PT, WOULD LIKE TO KEEP HER OVER NIGHT AND POSSIBLE DISCHARGE TOMMORROW. DISSCUSSED POSSIBLE SUBTANCE USE DISORDER AND OFFERED RESOURCES PT DENIDED SHE HAS AN ISSUE. PT MEDICATED HER EMAR. WILL CONTINUE TO MINITOR UNTIL END OF SHIFT. CALL LIGHT IN REACH.
[2024-04-21 11:49] VITALS: BP 101/82
[2024-04-21] MEDS ORDERED: LORazepam 1 MG Tab PO PRN (13:10)
--- NOTE | 2024-04-21 18:00 | NUR ---
SHIFT SUMMARY; ASSUMED CARE AT 0700. A/A/OX4, INDEPENDANT IN ROOM. NS INFUSING AT 100ML/HR, IV ABX PER EMAR. THOWA ASSESMENT AND ATIVAN ORDERED TODAY. ON ADMIT STATES HAS STOPPED DRINKING BUT HAD A "SLIP UP" AND DRANK HEAVILY 2 DAYS AGO. BECOMES INCREASINGLY FIDGITY T/O THE DAY, DISCUSSED AGAIN HX OF ETOH. EVENTALLY STATES HAS NOT STOPPED DRINKING AND DRINKS APPROX 1 PINT OF VODKA PER DAY. TELEPHONE CALL TO DR. SEAMAN TO DISCUSS. WILL TREAT FOR ETOH WITHDRAWL BASED ON THOWA'S PER OCT. VSS, DENIES CP OR SOB, WILL CONTINUE TO CLOSELY MONITOR UNTIL CHANGE OF SHIFT.
[2024-04-21 19:50] VITALS: BP 151/105
--- NOTE | 2024-04-21 21:13 | NUR ---
PT C/O FREQUENT LOOSE STOOLS AND IS REQUESTING IMMODIUM. CALL PLACED TO DR. ALVARADO, NEW ORDERS PENDING.
[2024-04-21] MEDS ORDERED: Loperamide HCl 2 MG Cap PO PRN (21:15)
--- NOTE | 2024-04-21 22:03 | NUR ---
PT MEDICATED FOR LOOSE STOOLS, SEE MAR.
[2024-04-21 23:53] VITALS: BP 127/88
[2024-04-22 04:04] VITALS: BP 138/81
[2024-04-22 04:33] LABS: BASOPHILS ABSOLUTE AUTO 0.01 K/mm3 (0.00-0.23); BASOPHILS PERCENT AUTO 0 % (0-2); EOSINOPHILS PERCENT AUTO 0 % (0-6); Hematocrit 37.4 % (33.0-51.0); Hemoglobin 12.2 g/dL (11.5-16.0); IMMATURE GRAN ABSOLUTE AUTO 0.06 K/mm3 (0.00-0.10); IMMATURE GRAN PERCENT AUTO 0 % (0-1); LYMPHOCYTES ABSOLUTE AUTO 0.45 K/mm3 (0.84-5.20); LYMPHOCYTES PERCENT AUTO 3 % (21-46); MONOCYTES ABSOLUTE AUTO 0.19 K/mm3 (0.16-1.47); MONOCYTES PERCENT AUTO 1 % (4-13); Mean Corpuscular HGB 33.9 pg (26.0-34.0); Mean Corpuscular HGB Conc 32.6 g/dL (31.5-36.5); Mean Corpuscular Volume 104 fL (80-100); Mean Platelet Volume 10.1 fL (9.1-12.4); NEUTROPHILS ABSOLUTE AUTO 12.74 K/mm3 (1.96-9.15); NEUTROPHILS PERCENT AUTO 95 % (41-73); Platelet Count 297 K/mm3 (150-400); RDW Coefficient Variation 13.3 % (11.7-14.2); RDW Standard Deviation 51.6 fL (35.1-46.3); White Blood Cell Count 13.45 K/mm3 (4.00-11.30)
[2024-04-22 05:17] LABS: Bun/Creatinine Ratio 27.1 (12.0-20.0); Creatinine, Blood 0.48 mg/dL (0.40-1.00); Potassium, Blood 4.2 mmol/L (3.5-5.5)
--- NOTE | 2024-04-22 06:43 | NUR ---
PT REMAINED STABLE THROUGHOUT THE SHIFT BUT DID DESAT ON THE AIRVO TO 84% WHILE SLEEPING AND WAS PLACED ON CPAP WITH IMMEDIATE IMPROVEMENT OF SPO2 TO 99-100%. PT WAS ABLE TO SLEEP FOR 3.5HRS. PT DID HAVE A LARGE BM THIS SHIFT. NO SPUTUM SAMPLE WAS ABLE TO BE COLLECTED YET FOR PENDING TEST. PT LUNG SOUNDS IMPROVING FROM PREVIOUS ASSESSMENTS. PT IS MAINTAINING O2 SATS BETTER ON AIRVO WITH MOVEMENT/TALKING/EATING/DRINKING WITH SATS BETWEEN 93-96%.
--- NOTE | 2024-04-22 06:47 | NUR ---
PT STABLE THROUGHOUT SHIFT. PT REMAINS ON ROOM AIR WITH GOOD SPO2. PT DID HAVE C/O OF LOOSE STOOLS EARLY IN SHIFT AND WAS MEDICATED FOR THAT WITH GOOD RESULTS. NO FURTHER C/O LOOSE STOOLS AFTER FIRST DOSE OF IMMODIUM. PT DID HAVE A SHOWER LAST NIGHT AND CONTINUES TO DO ALL ADLS INDEPENDENTLY. VITAL SIGNS REMAIN STABLE. NO S/S OF CIWA WITH TWO SCORES OF 0 @2355 AND @0416.
[2024-04-22 08:02] VITALS: BP 140/88
[2024-04-22] MEDS ORDERED: NORETHINDRONE 5 MG PO SCH (09:00)
[2024-04-22 09:20] LABS: Base Excess Venous -2.4 mmol/L; PCO2 Venous 31.8 mmHg (38-42); pH Blood Venous 7.44 (7.34-7.37)
[2024-04-22 09:30] LABS: STREPTOLYSIN O ANTIBODY <55 IU/mL (<=330)
[2024-04-22 09:38] LABS: Source, Urine Clean Catch
[2024-04-22 09:42] LABS: Appearance, Urine Clear (Clear); Bilirubin, Urine Neg (Neg); Blood, Urine 1+ (Neg); Color, Urine Yellow (P-Yellow); Glucose Qualitative, Urine Neg (Neg); Ketones, Urine Neg (Neg); Leukocyte Esterase, Urine Neg (Neg); Nitrite, Urine Neg (Neg); Protein, Urine Neg (Neg); Urobilinogen, Urine NORM (Normal)
[2024-04-22 09:53] LABS: Bacteria Rare /hpf; Squamous Epithelial Cells Few /hpf (Few)
[2024-04-22] MEDS ORDERED: BUSP5 PO (10:59)
[2024-04-22] MEDS ORDERED: CEFPODOXIME PR200 MG PO (10:59)
[2024-04-22] MEDS ORDERED: VISBIOME 112.51 EACH PO (10:59)
[2024-04-22] MEDS ORDERED: FLUTICASONE-SA1 EAC1 INH (11:00)
[2024-04-22] MEDS ORDERED: PRED20 PO (11:00)
[2024-04-22 11:15] VITALS: BP 150/89
--- NOTE | 2024-04-22 11:48 | NUR ---
DISCHARGE SUMMARY PT DISCHARGED AT 1135. IV REMOVED W/ CATH INTACT; VS STABLE; AND ALL BELONGING SENT WITH THE PT. HER MEDICATIONS WERE FAXED TO [facility]. ALL QUESTIONS ANSWERED AT DISCHARGED. NO FURTHER NOTES.
== END 2024-04-22 11:35 | disposition home or self-care (01) | DRG 193 ==
LOC: ER 05:11 → MEDS 10:10 → PCU 13:18
PROVIDERS: Student in an Organized Health Care Education/Training Program; ADMIT Internal Medicine
DX: J18.9 Pneumonia, unspecified organism (principal); J96.01 Acute respiratory failure with hypoxia; J44.1 Chronic obstructive pulmonary disease with (acute) exacerbation; E87.20 Acidosis, unspecified; E87.3 Alkalosis; F15.90 Other stimulant use, unspecified, uncomplicated; A60.00 Herpesviral infection of urogenital system, unspecified; E89.0 Postprocedural hypothyroidism; F17.210 Nicotine dependence, cigarettes, uncomplicated; F10.20 Alcohol dependence, uncomplicated; Z86.14 Personal history of Methicillin resistant Staphylococcus aureus infection; Z98.51 Tubal ligation status; Z87.81 Personal history of (healed) traumatic fracture; Z98.890 Other specified postprocedural states; Z85.850 Personal history of malignant neoplasm of thyroid; Z90.79 Acquired absence of other genital organ(s)
CPT/HCPCS: 0241U; 36415; 70498; 71045; 71046; 71260; 80048; 80053; 81001; 82010; 82803; 83605; 83880; 84484; 85025; 86060; 87040; 93005; 93010; 94640; 94664; 94762; 96374-59; 99285-25; A9270; G0480; J0696; J2919; J7030; Q9967

== ENCOUNTER 2024-11-12 20:07 | Emergency (ER) | payer OTHER ==
[~2024-11-12] VITALS: Ht 157.5 cm; Wt 72.6 kg
[~2024-11-12 20:07] MED LIST changes: +BUSP5 PO; +CEFPODOXIME PR200 MG PO; +FLUTICASONE-SA1 EAC1 INH; +PRED20 PO
[2024-11-12 21:10] LABS: BASOPHILS ABSOLUTE AUTO 0.04 K/mm3 (0.00-0.23); BASOPHILS PERCENT AUTO 1 % (0-2); EOSINOPHILS ABSOLUTE AUTO 0.29 K/mm3 (0.00-0.68); EOSINOPHILS PERCENT AUTO 3 % (0-6); Hemoglobin 12.7 g/dL (11.5-16.0); IMMATURE GRAN ABSOLUTE AUTO 0.02 K/mm3 (0.00-0.10); IMMATURE GRAN PERCENT AUTO 0 % (0-1); LYMPHOCYTES ABSOLUTE AUTO 2.35 K/mm3 (0.84-5.20); LYMPHOCYTES PERCENT AUTO 27 % (21-46); MONOCYTES ABSOLUTE AUTO 0.85 K/mm3 (0.16-1.47); MONOCYTES PERCENT AUTO 10 % (4-13); Mean Corpuscular HGB 33.4 pg (26.0-34.0); Mean Corpuscular HGB Conc 34.3 g/dL (31.5-36.5); Mean Corpuscular Volume 97 fL (80-100); Mean Platelet Volume 8.9 fL (9.1-12.4); NEUTROPHILS ABSOLUTE AUTO 5.04 K/mm3 (1.96-9.15); NEUTROPHILS PERCENT AUTO 59 % (41-73); Platelet Count 335 K/mm3 (150-400); RDW Coefficient Variation 13.1 % (11.7-14.2); RDW Standard Deviation 46.9 fL (35.1-46.3); White Blood Cell Count 8.59 K/mm3 (4.00-11.30)
[2024-11-12 21:21] LABS: Source, Urine Clean Catch
[2024-11-12 21:23] LABS: Albumin, Blood 3.9 g/dL (3.4-5.0); Albumin/Globulin Ratio 1.1 (0.8-1.8); Bilirubin, Total 0.5 mg/dL (0.1-1.0); Calcium, Blood 8.7 mg/dL (8.5-10.1); Creatinine, Blood 0.79 mg/dL (0.40-1.00); Globulin, Blood 3.7 g/dL (2.2-4.0); Potassium, Blood 3.5 mmol/L (3.5-5.5); Total Protein, Blood 7.6 g/dL (6.4-8.2)
[2024-11-12 21:29] LABS: Appearance, Urine Cloudy (Clear); Bilirubin, Urine Neg (Neg); Blood, Urine 5+ (Neg); Color, Urine Yellow (P-Yellow); Glucose Qualitative, Urine Neg (Neg); Ketones, Urine 2+ (Neg); Leukocyte Esterase, Urine 1+ (Neg); Nitrite, Urine Neg (Neg); Protein, Urine 2+ (Neg); Urobilinogen, Urine NORM (Normal)
[2024-11-12 21:39] LABS: International Normalized Ratio 1.01; Prothrombin Time Results 10.8 Sec (9.7-11.5)
[2024-11-12 22:13] LABS: Bacteria Mod /hpf; Red Blood Cells, Urine TNTC /hpf (0-2); Squamous Epithelial Cells Few /hpf (Few); White Blood Cells, Urine 0-2 /hpf (0-5)
[2024-11-12] MEDS ORDERED: FentaNYL Citrate 50 MCG/ML 2 ML Injection IV PRN (23:05)
[2024-11-12 23:40] LABS: Hematocrit 34.8 % (33.0-51.0); Hemoglobin 12.1 g/dL (11.5-16.0)
[2024-11-12] MEDS ORDERED: CefTRIAXone Sodium 1,000 MG in NS 50 ML IV ONE (23:55)
[2024-11-12] MEDS ORDERED: NS 1,000 ML IV SCH (23:55)
[2024-11-12] MEDS ORDERED: CEPH500 PO (23:56)
[2024-11-12] MEDS ORDERED: PHENA200 PO (23:58)
[2024-11-13 00:45] VITALS: BP 122/91
[2024-11-13 01:30] LABS: Hematocrit 36.5 % (33.0-51.0); Hemoglobin 12.4 g/dL (11.5-16.0)
== END 2024-11-13 01:58 | disposition home or self-care (01) ==
LOC: ER 20:07
PROVIDERS: Emergency Medicine; Student in an Organized Health Care Education/Training Program
DX: N30.90 Cystitis, unspecified without hematuria (principal); E86.0 Dehydration; R93.89 Abnormal findings on diagnostic imaging of other specified body structures; D25.9 Leiomyoma of uterus, unspecified; F17.210 Nicotine dependence, cigarettes, uncomplicated; Z79.899 Other long term (current) drug therapy
CPT/HCPCS: 76830; 76856; 80053; 81001; 84703; 85014; 85018; 85025; 85610; 85730; 86900; 86901; 87086; 96365; 96375; 99284-25; J0696; J3010; J7030

== ENCOUNTER 2025-06-18 12:44 | Emergency (ER) | payer OTHER ==
[~2025-06-18] VITALS: Ht 157.5 cm; Wt 72.6 kg
[~2025-06-18 12:44] MED LIST changes: +DOCU100 PO; +ESTR2 PO; +PHENA200 PO; +SIME80CH PO
[2025-06-18 12:58] VITALS: BP 158/88
[2025-06-18] MEDS ORDERED: Proparacaine 0.5% Opth Soln 15 ML BTL UD ONE (13:05)
[2025-06-18] MEDS ORDERED: Fluorescein Sod 1MG Opth Strips BOTHEYES ONE (13:05)
[2025-06-18] MEDS ORDERED: NS 1,000 ML IV SCH (14:55)
== END 2025-06-18 15:27 | disposition home or self-care (01) ==
LOC: ER 12:44
DX: T52.8X1A Toxic effect of other organic solvents, accidental (unintentional), initial encounter (principal); T26.91XA Corrosion of right eye and adnexa, part unspecified, initial encounter; Z79.899 Other long term (current) drug therapy; F17.200 Nicotine dependence, unspecified, uncomplicated; Z59.89 Other problems related to housing and economic circumstances
CPT/HCPCS: 99283; A9270; A9270-GY; J7030